=== PATIENT | male | born 1990 | race Caucasian/White ===

== ENCOUNTER 2019-03-21 12:35 | Emergency (ER) | payer OTHER ==
[~2019-03-21] VITALS: Ht 185.4 cm; Wt 137.3 kg
[2019-03-21 12:38] VITALS: BP 146/84
[2019-03-21] MEDS ORDERED: CELEXA 20MG20 MG/TAB PO (12:50)
[2019-03-21 13:20] LABS: BASO % 0.3 % (0.0-2.0); EOS # 0.2 (0.0-0.7); EOS % 1.4 % (0-4.0); GRAN # 12.2 (1.4-6.5); GRAN % 78.8 % (42.2-75.2); HEMATOCRIT 44.9 % (42.0-52.0); HEMOGLOBIN 15.1 g/dl (13.5-18.0); LYMPH # 2.1 (1.2-3.4); LYMPH % 13.3 % (20.0-51.0); MEAN CELL VOLUME 85 fl (80.0-100.0); MEAN CORPUSCULAR HEMOGLOBIN 29 pg (27.0-31.0); MEAN CORPUSCULAR HGB CONC 34 g/dl (33.0-37.0); MEAN PLATELET VOLUME 9.6 fl (7.4-10.4); MONO # 0.9 (0.1-0.6); MONO % 5.5 % (1.7-9.3); PLATELET COUNT 347 K/mm3 (130-400); RED BLOOD COUNT 5.29 M/mm3 (4.20-5.60); REDCELL DISTRIBUTION WIDTH-CV 13.3 % (11.5-14.5)
[2019-03-21 13:31] LABS: C-REACTIVE PROTEIN 6.5 mg/dL (0.0-0.9); CALCIUM 9.2 mg/dL (8.4-10.2); CREATININE, serum 0.82 (0.66-1.25)
[2019-03-21] MEDS ORDERED: CLEOCIN HCL300 MG PO (13:45)
[2019-03-21 13:51] VITALS: PULSE 89; TEMP 96.7
== END 2019-03-21 13:51 | disposition home or self-care (01) ==
LOC: COL.ER 12:35
PROVIDERS: Physician Assistant
DX: Q18.0 Sinus, fistula and cyst of branchial cleft (principal); L08.9 Local infection of the skin and subcutaneous tissue, unspecified; F32.9 Major depressive disorder, single episode, unspecified; Z88.2 Allergy status to sulfonamides

== ENCOUNTER → 2019-03-25 | Outpatient (CLI) | payer OTHER ==
[~2019-03-25] MED LIST: CELEXA 20MG20 MG/TAB PO; CLEOCIN HCL300 MG PO
== END ==
LOC: ZCOL.LAB 18:17
DX: Q18.0 Sinus, fistula and cyst of branchial cleft (principal)